=== PATIENT | male | born 1955 | race Hispanic/Latino ===

== ENCOUNTER 2017-09-26 14:20 | Observation (INO) | payer OTHER ==
[~2017-09-26] VITALS: Ht 170.2 cm; Wt 89.7 kg
[~2017-09-26 14:20] MED LIST: ADAL40KI SQ; AMLO5TAB5 PO; ASPI-555 PO; BUME1TAB12 PO; INSNOV SQ; INSU100V12 SQ; ISOS20TA7 PO; LEVO250T2 PO; METO2.5T2 PO; MINO10TA3 PO; ROSU40 PO; TAMS-1 PO
[2017-09-26 14:57] LABS: BASOPHILS % (AUTO) 0.9 % (0.0-5.0); LYMPHOCYTES % (AUTO) 13.2 % (21.0-51.0); MEAN CORPUSCULAR HEMOGLOBIN 27.6 pg (27.0-33.0); MEAN CORPUSCULAR HGB CONC 32.6 g/dL (32.0-36.0); MEAN CORPUSCULAR VOLUME 84.6 fL (79-99); MONOCYTES % (AUTO) 6.8 % (3.0-13.0); NEUTROPHILS % (AUTO) 73.1 % (40.0-77.0); PLATELET COUNT (AUTO) 133 K/uL (130-400); RED BLOOD CELL COUNT(AUTO) 2.44 MIL/uL (4.50-6.20); RED CELL DISTRIBUTION WIDTH 17.6 % (11.0-15.5)
[2017-09-26 15:00] LABS: HEMATOCRIT 20.6 % (42-54)
[2017-09-26 15:05] LABS: CREATININE 5.1 mg/dL (0.5-1.5); POTASSIUM 4.9 mmol/L (3.5-5.1)
[2017-09-26 15:08] LABS: INR 1.15 (0.85-1.15); PARTIAL THROMBOPLASTIN TIME 29.4 SEC (26.3-35.5)
[2017-09-26 15:09] LABS: ALBUMIN 2.4 g/dL (3.5-5.0); BILIRUBIN,TOTAL 0.4 mg/dL (0.2-1.0); TOTAL PROTEIN, SERUM 5.8 g/dL (6.0-8.3)
[2017-09-26] MEDS ORDERED: INSULIN HUMULIN R 100 UNIT/ML 3ML ONE (15:34)
[2017-09-26] MEDS ORDERED: INSULIN HUMULIN R 100 UNIT/ML 3ML SQ ONE (16:56)
[2017-09-26] MEDS ORDERED: PEG 3350/NA SULF,BICARB,CL/KCL 4000 ML SOLN PO ONE (18:00)
[2017-09-26 20:45] VITALS: BP 127/73
[2017-09-26] MEDS ORDERED: ONDANSETRON HCL 4 MG/2 ML VIAL IVP PRN (21:00)
[2017-09-26] MEDS ORDERED: GLUCAGON 1MG KIT 1 MG ML IM PRN ×2 (21:00→21:15)
[2017-09-26] MEDS: INSULIN R PO SS1 SQ SCH (21:00)
[2017-09-26] MEDS ORDERED: DEXTROSE 50%-WATER 50 ML DISP.SYRIN IV PRN ×2 (21:00→21:15)
[2017-09-26] MEDS ORDERED: ACETAMINOPHEN 325 MG TAB PO PRN (21:00)
[2017-09-26] MEDS: FLUCONAZOLE 100 MG TAB PO SCH (22:22)
[2017-09-26 23:46] VITALS: BP 122/57
[2017-09-27] VITALS (20 sets, daily range): BP systolic 133–194; BP diastolic 58–81
[2017-09-27 04:46] LABS: CREATININE 4.6 mg/dL (0.5-1.5); POTASSIUM 4.4 mmol/L (3.5-5.1)
[2017-09-27 04:56] LABS: MEAN CORPUSCULAR HEMOGLOBIN 28.1 pg (27.0-33.0); MEAN CORPUSCULAR HGB CONC 33.7 g/dL (32.0-36.0); MEAN CORPUSCULAR VOLUME 83.4 fL (79-99); PLATELET COUNT (AUTO) 93 K/uL (130-400); RED BLOOD CELL COUNT(AUTO) 2.52 MIL/uL (4.50-6.20); RED CELL DISTRIBUTION WIDTH 16.8 % (11.0-15.5); WHITE BLOOD COUNT (AUTO) 6.2 K/uL (4.8-10.8)
[2017-09-27] MEDS: INSULIN HUMULIN R 100 UNIT/ML 3ML SQ SCH ×4 (05:42→20:45)
[2017-09-27] MEDS: INSULIN R PO SS1 SQ SCH ×4 (05:43→20:45)
[2017-09-27 06:00] LABS: BAND NEUTROPHILS % (MANUAL) 4 % (0-2); EOSINOPHILS % (MANUAL) 3 % (1-6); LYMPHOCYTES % (MANUAL) 18 % (22-44); MAN.DIFF COMMENT-IMPRESSION MANUAL DIFFERENTIAL; MONOCYTES % (MANUAL) 4 % (2-9); PLATELET MORPHOLOGY COMMENT DECREASED; SEGMENTED NEUTROPHILS % 71 % (40-70)
[2017-09-27] MEDS ORDERED: LEVOFLOXACIN 500 MG TABLET PO SCH (07:15)
[2017-09-27] MEDS ORDERED: PROPOFOL 10 MG/ML 20ML VIAL IV ONE ×2 (11:28)
[2017-09-27] MEDS ORDERED: FENTANYL CITRATE PF 50 MCG/1 ML 2ML VIAL ONE (11:29)
[2017-09-27] MEDS: BUMETANIDE 1 MG TAB PO SCH ×2 (13:08→20:44)
[2017-09-27] MEDS: ISOSORBIDE MONONITRATE 20 MG TABLET PO SCH (13:08)
[2017-09-27] MEDS: PANTOPRAZOLE SODIUM 40 MG TABLET.DR PO SCH (13:08)
[2017-09-27] MEDS: TAMSULOSIN HCL 0.4 MG CAP.ER.24H PO SCH (13:08)
[2017-09-27 13:14] LABS: APPEARANCE,URINE Clear (CLEAR); BILIRUBIN,URINE Negative (NEGATIVE); COLOR,URINE Yellow (YELLOW); GLUCOSE, URINE (UA) TRACE mg/dL (NEGATIVE); KETONES,URINE Negative (NEGATIVE); LEUKOCYTE ESTERASE ,URINE Moderate (NEGATIVE); NITRATE,URINE Negative (NEGATIVE); OCCULT BLOOD,URINE Small (NEGATIVE); PH,URINE 5.5 (5.0-8.0); PROTEIN,URINE POS 2+ (NEGATIVE); UROBILINOGEN,URINE 0.2 mg/dL (0.2-1.0)
[2017-09-27] MEDS ORDERED: FUROSEMIDE 10 MG/ML 4ML VIAL ONE (13:55)
[2017-09-27 13:58] LABS: RBC,URINE 0-1 /HPF (0-1)
[2017-09-27 13:59] LABS: BACTERIA,URINE Few /HPF (None Seen); WBC,URINE 26-50 /HPF (0-1)
[2017-09-27 18:16] LABS: HEMATOCRIT 25.2 % (42-54)
[2017-09-27] MEDS: FLUCONAZOLE 100 MG TAB PO SCH (20:44)
[2017-09-27] MEDS ORDERED: ATORVASTATIN CALCIUM 40 MG TABLET PO SCH (21:00)
[2017-09-28 00:24] VITALS: BP 152/81
[2017-09-28 04:03] VITALS: BP 151/70
[2017-09-28 05:05] LABS: HEMATOCRIT 24.2 % (42-54); MEAN CORPUSCULAR HEMOGLOBIN 29.6 pg (27.0-33.0); MEAN CORPUSCULAR HGB CONC 35.4 g/dL (32.0-36.0); MEAN CORPUSCULAR VOLUME 83.5 fL (79-99); PLATELET COUNT (AUTO) 88 K/uL (130-400); RED CELL DISTRIBUTION WIDTH 16.5 % (11.0-15.5); WHITE BLOOD COUNT (AUTO) 6.1 K/uL (4.8-10.8)
[2017-09-28 05:27] LABS: CREATININE 4.1 mg/dL (0.5-1.5)
[2017-09-28] MEDS: INSULIN HUMULIN R 100 UNIT/ML 3ML SQ SCH ×2 (06:08→11:34)
[2017-09-28] MEDS: INSULIN R PO SS1 SQ SCH ×2 (06:47→11:30)
[2017-09-28 07:38] VITALS: BP 152/68
[2017-09-28] MEDS: BUMETANIDE 1 MG TAB PO SCH (08:08)
[2017-09-28] MEDS: PANTOPRAZOLE SODIUM 40 MG TABLET.DR PO SCH (08:08)
[2017-09-28] MEDS: ISOSORBIDE MONONITRATE 20 MG TABLET PO SCH (08:08)
[2017-09-28] MEDS: TAMSULOSIN HCL 0.4 MG CAP.ER.24H PO SCH (08:08)
[2017-09-28 11:17] VITALS: BP 151/72
[2017-12-07] MEDS ORDERED: INSU100I15 SQ (13:17)
[2017-12-07] MEDS ORDERED: METO10TA3 PO (13:17)
[2017-12-07] MEDS ORDERED: MINO10TA3 PO (13:17)
[2017-12-07] MEDS ORDERED: CLOP75TA14 PO (13:17)
[2017-12-07] MEDS ORDERED: TRAM50TA4 PO (13:17)
[2017-12-07] MEDS ORDERED: ISOS20TA7 PO (13:17)
[2017-12-07] MEDS ORDERED: EPOE40009 IJ (13:18)
[2017-12-07] MEDS ORDERED: PANT40TA PO (13:18)
== END 2017-09-28 12:45 | disposition home or self-care (01) ==
LOC: EDH 14:20 → EDHIP 16:22 → 2DH 20:27
PROVIDERS: ADMIT Internal Medicine; ATTEND Internal Medicine
DX: K92.1 Melena (principal); K57.30 Diverticulosis of large intestine without perforation or abscess without bleeding; K63.3 Ulcer of intestine; D50.0 Iron deficiency anemia secondary to blood loss (chronic); D62 Acute posthemorrhagic anemia; I12.0 Hypertensive chronic kidney disease with stage 5 chronic kidney disease or end stage renal disease; N18.6 End stage renal disease; E11.40 Type 2 diabetes mellitus with diabetic neuropathy, unspecified; E11.51 Type 2 diabetes mellitus with diabetic peripheral angiopathy without gangrene; E11.22 Type 2 diabetes mellitus with diabetic chronic kidney disease; I48.91 Unspecified atrial fibrillation; I25.10 Atherosclerotic heart disease of native coronary artery without angina pectoris; E78.5 Hyperlipidemia, unspecified; N40.0 Benign prostatic hyperplasia without lower urinary tract symptoms; Z95.1 Presence of aortocoronary bypass graft; Z82.49 Family history of ischemic heart disease and other diseases of the circulatory system; Z95.5 Presence of coronary angioplasty implant and graft; Z99.2 Dependence on renal dialysis
CPT/HCPCS: 36415 ×3; 36430 ×2; 45382; 71045; 80048 ×2; 80053; 81001; 82270; 82948 ×8; 84484; 85025 ×2; 85027; 85610; 85730; 86850; 86900; 86901; 86922 ×2; 93005; 96372; 99285; G0378 ×44; J1815 ×4; J1940; J2704 ×2; J3010; P9016 ×4

== ENCOUNTER → 2017-11-16 | Outpatient (CLI) | payer OTHER ==
[~2017-11-16] MED LIST changes: +CLOP75TA14 PO; +EPOE40009 IJ; +INSU100I15 SQ; +METO10TA3 PO; +PANT40TA PO; +TRAM50TA4 PO
== END | disposition home or self-care (01) ==
LOC: SHCH 12:00
PROVIDERS: ATTEND Internal Medicine Cardiovascular Disease
DX: I08.0 Rheumatic disorders of both mitral and aortic valves (principal); I48.91 Unspecified atrial fibrillation
CPT/HCPCS: 93306

== ENCOUNTER 2017-12-08 06:55 | Day surgery (SDC) | payer OTHER ==
[~2017-12-08] VITALS: Ht 172.7 cm; Wt 94.4 kg
[~2017-12-08 06:55] MED LIST changes: -AMLO5TAB5 PO; -BUME1TAB12 PO; -INSNOV SQ; -LEVO250T2 PO; -METO2.5T2 PO; +SODIUM CHLORIDE 0.9% 1000ML 1,000 ML IV ONE; -TAMS-1 PO
[2017-12-08 07:20] VITALS: BP 138/68
[2017-12-08] MEDS ORDERED: PROPOFOL 10 MG/ML 20ML VIAL IV ONE (08:29)
[2017-12-08] MEDS ORDERED: PHENYLEPHRINE HCL 10 MG/ML 1ML VIAL IV ONE (08:39)
[2017-12-08 08:51] VITALS: BP 97/38
== END 2017-12-08 09:26 ==
LOC: ENDO 06:55 → DAH 06:55 → ENDO 09:26
PROVIDERS: ATTEND Internal Medicine Gastroenterology
DX: K92.1 Melena (principal); D12.4 Benign neoplasm of descending colon; K63.5 Polyp of colon; K57.30 Diverticulosis of large intestine without perforation or abscess without bleeding; Z95.1 Presence of aortocoronary bypass graft; I25.10 Atherosclerotic heart disease of native coronary artery without angina pectoris; Z79.4 Long term (current) use of insulin; K21.9 Gastro-esophageal reflux disease without esophagitis; E78.4 Other hyperlipidemia; N18.6 End stage renal disease; I12.0 Hypertensive chronic kidney disease with stage 5 chronic kidney disease or end stage renal disease; E11.22 Type 2 diabetes mellitus with diabetic chronic kidney disease; D50.8 Other iron deficiency anemias; Z79.82 Long term (current) use of aspirin; Z79.899 Other long term (current) drug therapy; Z98.890 Other specified postprocedural states; I48.91 Unspecified atrial fibrillation
CPT/HCPCS: 45380; 82948 ×2; 88305; 93005; A4606; J2370; J2704; J7030

== ENCOUNTER → 2020-10-27 | Outpatient (CLI) | payer OTHER ==
[~2020-10-27] MED LIST changes: -ASPI-555 PO; +ASPI-556 PO; -ISOS20TA7 PO; +ISOS20TA85 PO; -SODIUM CHLORIDE 0.9% 1000ML 1,000 ML IV ONE
== END | disposition home or self-care (01) ==
LOC: SHCH 09:56
PROVIDERS: ATTEND Internal Medicine Cardiovascular Disease
DX: I87.2 Venous insufficiency (chronic) (peripheral) (principal); I73.9 Peripheral vascular disease, unspecified
CPT/HCPCS: 93925; 93970

== ENCOUNTER → 2022-02-09 | Outpatient (CLI) | payer OTHER | END | disposition home or self-care (01) | LOC: SHCH 09:01 | PROVIDERS: ATTEND Internal Medicine Cardiovascular Disease | DX: I70.293 Other atherosclerosis of native arteries of extremities, bilateral legs (principal) | CPT/HCPCS: 93925 ==

== ENCOUNTER → 2022-04-07 | Outpatient (CLI) | payer OTHER | END | disposition home or self-care (01) | LOC: SHCH 09:14 | PROVIDERS: ATTEND Internal Medicine Cardiovascular Disease | DX: I73.9 Peripheral vascular disease, unspecified (principal) | CPT/HCPCS: 93925 ==

== ENCOUNTER → 2022-04-15 | Outpatient (CLI) | payer OTHER | END | disposition home or self-care (01) | LOC: SHCH 09:55 | PROVIDERS: ATTEND Internal Medicine Cardiovascular Disease | DX: R01.1 Cardiac murmur, unspecified (principal); R06.09 Other forms of dyspnea; E11.9 Type 2 diabetes mellitus without complications; I11.9 Hypertensive heart disease without heart failure | CPT/HCPCS: 93306 ==

== ENCOUNTER → 2022-04-25 | Outpatient (CLI) | payer OTHER ==
[~2022-04-25] VITALS: Ht 172.7 cm; Wt 89.8 kg
[~2022-04-25] MED LIST changes: +REGADENOSON 0.4 MG/5 ML PF SYG IVP SCH
== END | disposition home or self-care (01) ==
LOC: SHCH 08:29
PROVIDERS: ATTEND Internal Medicine Cardiovascular Disease
DX: I20.9 Angina pectoris, unspecified (principal); R07.9 Chest pain, unspecified
CPT/HCPCS: 78452; 96374; 93017; J2785; A9500 ×2